=== PATIENT | female | born 1950 | race Caucasian/White ===

== ENCOUNTER 2023-04-10 16:08 | Inpatient (IN) | payer OTHER ==
[~2023-04-10] VITALS: Ht 152.4 cm; Wt 61.2 kg
[2023-04-10] MEDS ORDERED: LIPITOR40 M1 (16:20)
[2023-04-10] MEDS ORDERED: TENORMIN25 MG (16:20)
[2023-04-10] MEDS ORDERED: COZAAR100 MG (16:20)
--- NOTE | 2023-04-10 16:20 | NUR ---
SE RECIBE PACIENTE LERTARGICA EN AMBULANCIA EN COMPANIA DE FAMILIAR LA CUAL INDICA QUE PACIENTE PRESENTA HIPOTENSION Y NO PENNY ESTADO ORINANDO. PACIENTE CON ULCERA SACRAL ESTADIO 4 Y EN ULCERA EN SAVANA DERECHO.
[2023-04-10] MEDS ORDERED: NOREPINEPHRINE BITARTRATE 4 MG in DEXTROSE 5 % IN WATER 250 ML IV SCH (16:45)
[2023-04-10] MEDS ORDERED: PIPERACILLIN/TAZOBACTAM SODIUM 3.375 GM VIAL IV ONE (16:45)
[2023-04-10] MEDS ORDERED: 0.9 % SODIUM CHLORIDE 1,000 ML IV SCH ×2 (16:45→21:15)
[2023-04-10 17:17] LABS: HEMATOCRIT 41.6 % (36.0-45.00); HEMOGLOBIN 13.5 g/dL (12.0-15.00); MEAN CORPUSCULAR HEMOGLOBIN 28.2 pg (27.00-32.0); MEAN CORPUSCULAR HGB CONC 32.4 g/dl (32.0-36.0); PLATELET COUNT 268 K/uL (150-450); RED BLOOD COUNT 4.78 M/uL (4.00-6.00); RED CELL DISTRIBUTION WIDTH 16.5 % (11.5-14.5)
[2023-04-10 17:29] LABS: INR 1.07; PARTIAL THROMBOPLASTIN TIME 27.2 SECONDS (22.0-34.0); PROTHROMBIN TIME 11.2 SECONDS (9.0-11.5)
--- NOTE | 2023-04-10 17:33 | NUR ---
SE PASA PACIENTE A UNIDAD ICU # 2 SE CONECTA A MONITOR CARDIACO Y OXIMETRIA DE [place]. SE CANALIZA LA MISMA EN MANO DERECHO # 22 Y BRAZO RUTHIE # 20 PATENTE SE COLOCA IVFS Y DRIP DE LEVOPHED Y SE ADMINITRAN MEDICAMENTOS DAMIAN ORDEN MEDICA. SE MICHELLE MUESTRAS DE LABORATORIO Y SE ENVIAN. SE COLOCA KHAN CASSIUSO ORINA CHIKIS SE ANTHONY U/A Y U/C Y SE NOTIFICA AL DR. MALLOY. SE REALIZA EKG Y DXT. ABGS REALIZADO POR PERSONAL DE TERAPIA RESPIRATORIO Y SE COLOCA CANULA NASAL A 3 L/MIN
[2023-04-10 17:34] LABS: ALBUMIN 1.2 gm/dL (3.4-5.0); BILIRUBIN TOTAL 0.58 mg/dL (0.3-1.2); CALCIUM 7.5 mg/dL (8.5-10.1); CREATININE SERUM 1.57 mg/dL (0.55-1.02); GFR 32.29; GLOBULINA 3.8 G/DL (2.4-3.5); POTASSIUM 3.57 mEq/L (3.5-5.1)
[2023-04-10 17:39] LABS: URINE APPEARANCE Turbid; URINE BILIRRUBIN Large (NEGATIVE); URINE BLOOD Negative; URINE COLOR Orange; URINE GLUCOSE Negative (NEGATIVE); URINE LEUKOCYTE Moderate; URINE NITRATE Positive
[2023-04-10 17:39] LABS: ALBUMIN 1.2 gm/dL (3.4-5.0); BILIRUBIN TOTAL 0.57 mg/dL (0.3-1.2); BILIRUBIN,CONJUGATED 0.24 mg/dL (0.0-0.2); BILIRUBIN,UNCONJUGATED 0.33 mg/dL (0.0-0.6)
[2023-04-10 17:40] LABS: URINE BACTERIA 1185.6 uL (0.0-1933); URINE EPITHELIAL CELLS 107.9 uL (0.0-38.8); URINE RBC 669.8 uL (0.0-20.8)
[2023-04-10 18:03] LABS: URINE PROTEIN 100 (NEGATIVE)
[2023-04-10 18:04] LABS: URINE YEAST MANY /hpf
[2023-04-10 19:00] LABS: ABG PH 7.489 (7.35-7.45); ABG PO2 87.9 mmHg (80-100); ABG pCO2 35.3 mmHg (35-45); BASE EXCESS 3.2 mmol/l; BICARBONATE 26.2 mmol/l (23-25); SaO2 97.6 %
[2023-04-10 19:01] LABS: Tco2 27.3 mmol/l; allen test SATISFACTORY; o2 21 %; puncture site RADIAL RIGHT
[2023-04-10] MEDS ORDERED: MEROPENEM 500 MG/VIAL VIAL IV SCH (21:15)
[2023-04-10] MEDS ORDERED: VANCOMYCIN HCL 500 MG VIAL IV SCH (21:16)
[2023-04-10] MEDS ORDERED: ONDANSETRON HCL 4 MG in 0.9 % SODIUM CHLORIDE 50 ML IV PRN (21:30)
[2023-04-10] MEDS ORDERED: NOREPINEPHRINE BITARTRATE 8 MG in DEXTROSE 5 % IN WATER 250 ML IV SCH (21:30)
[2023-04-10] MEDS ORDERED: ACETAMINOPHEN 500 MG GEL..CAP PO PRN (21:30)
[2023-04-11 00:05] LABS: FERRITIN 1782.3 NG/ML (8-252)
[2023-04-11] MEDS ORDERED: ENOXAPARIN SODIUM 30 MG/0.3 ML SYRINGE SUBCUTANEO SCH (09:00)
[2023-04-11] MEDS ORDERED: ATORVASTATIN CALCIUM 40 MG TABLET PO SCH (09:00)
[2023-04-11] MEDS ORDERED: FAMOTIDINE/PF 20 MG in 0.9 % SODIUM CHLORIDE 8 ML IV PUSH SCH (09:00)
[2023-04-11] MEDS ORDERED: NYSTATIN 15 GM,SILVER SULFADIAZINE 50 GM,ZINC OXIDE 30 GM TOP SCH (09:12)
[2023-04-11] MEDS ORDERED: LINEZOLID IN DEXTROSE 5% 300 ML IV SCH (12:29)
[2023-04-11] MEDS ORDERED: FLUCONAZOLE IN NACL,ISO-OSM 200 MG/100 ML PIGGYBAG IV ONE (12:45)
[2023-04-11] MEDS ORDERED: MEROPENEM 500 MG/VIAL VIAL IV SCH (13:00)
[2023-04-11] MEDS ORDERED: NYSTATIN 30 GM,SILVER SULFADIAZINE 50 GM,ZINC OXIDE 30 GM TOP SCH (17:00)
[2023-04-12 06:44] LABS: HEMATOCRIT 42.8 % (36.0-45.00); MEAN CELL VOLUME 87.7 fL (80.00-100.00); MEAN CORPUSCULAR HEMOGLOBIN 28.8 pg (27.00-32.0); MEAN CORPUSCULAR HGB CONC 32.8 g/dl (32.0-36.0); PLATELET COUNT 209 K/uL (150-450); RED BLOOD COUNT 4.88 M/uL (4.00-6.00); RED CELL DISTRIBUTION WIDTH 16.3 % (11.5-14.5)
[2023-04-12 07:43] LABS: ALBUMIN 1.3 gm/dL (3.4-5.0); BILIRUBIN TOTAL 0.6 mg/dL (0.3-1.2); CALCIUM 7.4 mg/dL (8.5-10.1); CREATININE SERUM 0.7 mg/dL (0.55-1.02); GFR 82.02; GLOBULINA 3.8 G/DL (2.4-3.5); MAGNESIUM 2.1 mg/dL (1.8-2.4); PHOSPHOROUS 2.4 mg/dL (2.5-4.9); POTASSIUM 3.84 mEq/L (3.5-5.1); TOTAL PROTEIN 5.1 gm/dL (6.4-8.2)
[2023-04-12 07:44] LABS: C-REACTIVE PROTEIN 11.4 MG/DL (0.00-0.29); FERRITIN 1900.8 NG/ML (8-252)
[2023-04-12 08:24] LABS: ERYTHROCYTE SEDIMENTATION RATE 12 mm/hr
[2023-04-12] MEDS ORDERED: FLUCONAZOLE IN NACL,ISO-OSM 2 MG/ML ML IV SCH (12:00)
[2023-04-13 08:12] LABS: ALBUMIN 1.1 gm/dL (3.4-5.0); BILIRUBIN TOTAL 0.59 mg/dL (0.3-1.2); CALCIUM 7.1 mg/dL (8.5-10.1); CREATININE SERUM 0.6 mg/dL (0.55-1.02); GFR 97.99; GLOBULINA 3.4 G/DL (2.4-3.5); POTASSIUM 3.23 mEq/L (3.5-5.1); TOTAL PROTEIN 4.5 gm/dL (6.4-8.2)
[2023-04-13] MEDS ORDERED: FLUCONAZOLE IN NACL,ISO-OSM 50 ML IV SCH (12:00)
[2023-04-13] MEDS ORDERED: POTASSIUM CHLORIDE IN WATER 100 ML IV ONE (12:45)
[2023-04-13] MEDS ORDERED: FUROsemide 20 MG/2 ML VIAL IV STA (19:30)
[2023-04-13] MEDS ORDERED: ALBUMIN HUMAN-25 0.25GM/ML (50ML) VIAL IV SCH (19:48)
[2023-04-14 07:10] LABS: C-REACTIVE PROTEIN 6.75 MG/DL (0.00-0.29); FERRITIN 1594.3 NG/ML (8-252)
[2023-04-14] MEDS ORDERED: HYDROCORTISONE SODIUM SUCC/PF 100 MG VIAL IV SCH (08:04)
[2023-04-14 13:48] LABS: CHOL HDL RATIO 3.9 (0-5.0); CREATININE SERUM 0.35 mg/dL (0.55-1.02); GFR 182.53
[2023-04-14 13:55] LABS: POTASSIUM 2.92 mEq/L (3.5-5.1)
[2023-04-14] MEDS ORDERED: POTASSIUM CHLORIDE IN WATER 40 MEQ/100 ML PIGGYBAG IV ONE (14:11)
[2023-04-14] MEDS ORDERED: POTASSIUM CHLORIDE IN 0.9%NACL 40 MEQ/1,000 ML PIGGYBAG IV ONE (14:15)
[2023-04-14] MEDS ORDERED: AA 4.25%/CAL/LYTES/DEXT 5% 1,000 ML PERIFERAL SCH (17:00)
[2023-04-15 09:59] LABS: HEMATOCRIT 33.2 % (36.0-45.00); MEAN CELL VOLUME 86.9 fL (80.00-100.00); MEAN CORPUSCULAR HEMOGLOBIN 28.8 pg (27.00-32.0); MEAN CORPUSCULAR HGB CONC 33.2 g/dl (32.0-36.0); PLATELET COUNT 150 K/uL (150-450); RED BLOOD COUNT 3.82 M/uL (4.00-6.00); RED CELL DISTRIBUTION WIDTH 16.5 % (11.5-14.5)
[2023-04-15 11:07] LABS: ALBUMIN 1.4 gm/dL (3.4-5.0); BILIRUBIN TOTAL 0.65 mg/dL (0.3-1.2); CALCIUM 7.3 mg/dL (8.5-10.1); MAGNESIUM 1.6 mg/dL (1.8-2.4); POTASSIUM 3.55 mEq/L (3.5-5.1); TOTAL PROTEIN 4.4 gm/dL (6.4-8.2)
[2023-04-15 11:12] LABS: C-REACTIVE PROTEIN 6.39 MG/DL (0.00-0.29); GFR 236.14
[2023-04-15 11:13] LABS: CREATININE SERUM 0.28 mg/dL (0.55-1.02); PHOSPHOROUS 1.8 mg/dL (2.5-4.9)
[2023-04-15] MEDS ORDERED: MAGNESIUM SULFATE IN WATER 4 GM/100 ML PIGGYBACK IV ONE (12:30)
[2023-04-15] MEDS ORDERED: AMINO ACIDS/PROTEIN HYDROLYS 30 ML BLIST.PACK PO SCH (12:30)
[2023-04-15] MEDS ORDERED: POTASSIUM PHOS,M-BASIC-D-BASIC 15 MM in 0.9 % SODIUM CHLORIDE 250 ML IV ONE (14:00)
[2023-04-15] MEDS ORDERED: MEROPENEM 500 MG/VIAL VIAL IV SCH (14:00)
[2023-04-15] MEDS ORDERED: METRONIDAZOLE/SODIUM CHLORIDE 100 ML IV SCH (17:00)
[2023-04-15] MEDS ORDERED: MAGNESIUM SULFATE IN WATER 2 GM/50 ML PIGGYBAG IV ONE (18:30)
[2023-04-15] MEDS ORDERED: DEXTROSE 50 % IN WATER 0.5 G/ML DISP.SYRIN IV PRN (18:45)
[2023-04-15] MEDS ORDERED: INSULIN LISPRO 1,000 UNIT/10 ML UNITS SUBCUTANEO PRN (18:45)
[2023-04-16 07:58] LABS: C-REACTIVE PROTEIN 2.74 MG/DL (0.00-0.29); FERRITIN 1259.5 NG/ML (8-252)
[2023-04-16] MEDS ORDERED: SODIUM HYPOCHLORITE 1OZ TOP SCH (09:00)
[2023-04-16] MEDS ORDERED: NOREPINEPHRINE BITARTRATE 8 MG in DEXTROSE 5 % IN WATER 250 ML IV SCH (20:00)
[2023-04-17 06:35] LABS: HEMATOCRIT 30.2 % (36.0-45.00); MEAN CELL VOLUME 88.2 fL (80.00-100.00); MEAN CORPUSCULAR HEMOGLOBIN 29.3 pg (27.00-32.0); MEAN CORPUSCULAR HGB CONC 33.2 g/dl (32.0-36.0); RED BLOOD COUNT 3.42 M/uL (4.00-6.00); RED CELL DISTRIBUTION WIDTH 16.3 % (11.5-14.5)
[2023-04-17 06:50] LABS: ALBUMIN 1.1 gm/dL (3.4-5.0); BILIRUBIN TOTAL 0.39 mg/dL (0.3-1.2); CALCIUM 7.3 mg/dL (8.5-10.1); CREATININE SERUM 0.33 mg/dL (0.55-1.02); GFR 195.35; GLOBULINA 2.4 G/DL (2.4-3.5); MAGNESIUM 2.5 mg/dL (1.8-2.4); PHOSPHOROUS 2.8 mg/dL (2.5-4.9); POTASSIUM 4.55 mEq/L (3.5-5.1); TOTAL PROTEIN 3.5 gm/dL (6.4-8.2)
[2023-04-17 07:01] LABS: PLATELET COUNT 113 K/uL (150-450)
[2023-04-17] MEDS ORDERED: ENOXAPARIN SODIUM 40 MG/0.4 ML SYRINGE SUBCUTANEO SCH (09:00)
[2023-04-17] MEDS ORDERED: VANCOMYCIN HCL 5 MG/ML REDILUIDO IV SCH (17:00)
[2023-04-19 09:36] LABS: HEMATOCRIT 28.9 % (36.0-45.00); MEAN CELL VOLUME 85.8 fL (80.00-100.00); MEAN CORPUSCULAR HEMOGLOBIN 29.1 pg (27.00-32.0); MEAN CORPUSCULAR HGB CONC 33.9 g/dl (32.0-36.0); RED BLOOD COUNT 3.36 M/uL (4.00-6.00); RED CELL DISTRIBUTION WIDTH 16.5 % (11.5-14.5)
[2023-04-19 09:37] LABS: PLATELET COUNT 80 K/uL (150-450)
[2023-04-19 09:38] LABS: HEMOGLOBIN 9.8 g/dL (12.0-15.00)
[2023-04-19 10:17] LABS: ALBUMIN 1.1 gm/dL (3.4-5.0); BILIRUBIN TOTAL 0.46 mg/dL (0.3-1.2); GLOBULINA 2.6 G/DL (2.4-3.5); MAGNESIUM 1.7 mg/dL (1.8-2.4); POTASSIUM 3.6 mEq/L (3.5-5.1); TOTAL PROTEIN 3.7 gm/dL (6.4-8.2)
[2023-04-19 10:52] LABS: GFR 329.1
[2023-04-19 10:55] LABS: C-REACTIVE PROTEIN 6.38 MG/DL (0.00-0.29); PHOSPHOROUS 1.4 mg/dL (2.5-4.9)
[2023-04-19 10:56] LABS: CALCIUM 7.3 mg/dL (8.5-10.1); CREATININE SERUM 0.21 mg/dL (0.55-1.02)
[2023-04-19] MEDS ORDERED: MAGNESIUM SULFATE IN WATER 4 GM/100 ML PIGGYBACK IV ONE (16:45)
[2023-04-19] MEDS ORDERED: POTASSIUM PHOS,M-BASIC-D-BASIC 18 MM in 0.9 % SODIUM CHLORIDE 250 ML IV ONE (17:30)
[2023-04-21 07:12] LABS: INR 1.16; PARTIAL THROMBOPLASTIN TIME 27.6 SECONDS (22.0-34.0)
[2023-04-21 07:21] LABS: HEMATOCRIT 24.1 % (36.0-45.00); MEAN CELL VOLUME 88.1 fL (80.00-100.00); MEAN CORPUSCULAR HGB CONC 33.2 g/dl (32.0-36.0); RED BLOOD COUNT 2.73 M/uL (4.00-6.00); RED CELL DISTRIBUTION WIDTH 16.6 % (11.5-14.5)
[2023-04-21 07:22] LABS: MEAN CORPUSCULAR HEMOGLOBIN 29.3 pg (27.00-32.0); PLATELET COUNT 52 K/uL (150-450)
[2023-04-21 07:23] LABS: BILIRUBIN TOTAL 0.39 mg/dL (0.3-1.2); BILIRUBIN,CONJUGATED 0.11 mg/dL (0.0-0.2); BILIRUBIN,UNCONJUGATED 0.28 mg/dL (0.0-0.6); CALCIUM 6.8 mg/dL (8.5-10.1); CHOL HDL RATIO 2.9 (0-5.0); GFR 348.18; GLOBULINA 2.3 G/DL (2.4-3.5); MAGNESIUM 2.3 mg/dL (1.8-2.4); POTASSIUM 5.13 mEq/L (3.5-5.1); TOTAL PROTEIN 3.3 gm/dL (6.4-8.2)
[2023-04-21 07:33] LABS: CREATININE SERUM 0.2 mg/dL (0.55-1.02)
[2023-04-21 08:33] LABS: ABG PH 7.483 (7.35-7.45); ABG PO2 84.7 mmHg (80-100); ABG pCO2 31.6 mmHg (35-45); BASE EXCESS 0.6 mmol/l; BICARBONATE 23.1 mmol/l (23-25); SaO2 97.2 %; Tco2 24.1 mmol/l
[2023-04-21 08:34] LABS: allen test SATISFACTORY; o2 21 %; puncture site RADIAL LEFT
[2023-04-21] MEDS ORDERED: PANTOPRAZOLE SODIUM 40 MG/VIAL VIAL IV SCH (09:00)
[2023-04-21] MEDS ORDERED: FUROsemide 20 MG/2 ML VIAL IV SCH (09:15)
[2023-04-21] MEDS ORDERED: CALCIUM GLUCONATE 100 MG/ML VIAL IV ONE (09:15)
[2023-04-21] MEDS ORDERED: SOD FERRIC GLUC COMPLX/SUCROSE 62.5 MG/5 ML AMPUL IV SCH (09:41)
[2023-04-21 10:13] LABS: UREA CLEARANCE 26.7 ML/MIN
[2023-04-21 13:15] LABS: FERRITIN 1425.4 NG/ML (8-252)
[2023-04-22] MEDS ORDERED: VANCOMYCIN HCL 1,000 MG VIAL IV SCH (05:00)
[2023-04-22] MEDS ORDERED: MULTIVIT INFUSN,ADULT 4,VIT K 10 ML VIAL IV SCH (18:43)
[2023-04-22 19:53] LABS: HEMOGLOBIN 11.9 g/dL (12.0-15.00); MEAN CELL VOLUME 85.8 fL (80.00-100.00); MEAN CORPUSCULAR HEMOGLOBIN 29.1 pg (27.00-32.0); RED BLOOD COUNT 4.08 M/uL (4.00-6.00); RED CELL DISTRIBUTION WIDTH 15.2 % (11.5-14.5)
[2023-04-22 19:54] LABS: PLATELET COUNT 42 K/uL (150-450)
[2023-04-22 20:10] LABS: ALBUMIN 1.2 gm/dL (3.4-5.0); BILIRUBIN TOTAL 0.48 mg/dL (0.3-1.2); CALCIUM 7.2 mg/dL (8.5-10.1); GFR 369.41; GLOBULINA 2.5 G/DL (2.4-3.5); POTASSIUM 3.3 mEq/L (3.5-5.1); TOTAL PROTEIN 3.7 gm/dL (6.4-8.2)
[2023-04-22 20:12] LABS: CREATININE SERUM 0.19 mg/dL (0.55-1.02)
[2023-04-23 08:07] LABS: HEMATOCRIT 32.3 % (36.0-45.00); HEMOGLOBIN 11.1 g/dL (12.0-15.00); MEAN CELL VOLUME 87.3 fL (80.00-100.00); MEAN CORPUSCULAR HEMOGLOBIN 29.9 pg (27.00-32.0); MEAN CORPUSCULAR HGB CONC 34.2 g/dl (32.0-36.0); RED CELL DISTRIBUTION WIDTH 15.3 % (11.5-14.5)
[2023-04-23 08:11] LABS: PLATELET COUNT 35 K/uL (150-450)
[2023-04-23 08:16] LABS: PLATELET ESTIMATE DECREASED (NORMAL)
[2023-04-23] MEDS ORDERED: THIAMINE HCL 100 MG/ML 2 ML VIAL IV SCH (09:00)
[2023-04-23] MEDS ORDERED: FLUCONAZOLE IN NACL,ISO-OSM 200 MG/100 ML PIGGYBAG IV STA (09:16)
[2023-04-23] MEDS ORDERED: AMINO ACIDS/PROTEIN HYDROLYS 30 ML BLIST.PACK PO SCH (09:33)
[2023-04-23] MEDS ORDERED: CALCIUM CARBONATE/VITAMIN D3 1 TAB TABLET PO SCH (09:33)
[2023-04-23] MEDS ORDERED: POTASSIUM CHLORIDE IN WATER 100 ML IV ONE (09:45)
[2023-04-23 13:17] LABS: FIBRINOGEN 357 mg/dL (187.0-446.0); INR 1.04; PARTIAL THROMBOPLASTIN TIME 36.8 SECONDS (22.0-34.0); PROTHROMBIN TIME 10.9 SECONDS (9.0-11.5)
[2023-04-23 13:19] LABS: D DIMER 6.34 MG/L
[2023-04-23 13:27] LABS: COL EPI 181 SECONDS (82-175)
[2023-04-23 14:40] LABS: ob POSITIVE (NEGATIVE)
[2023-04-23] MEDS ORDERED: SODIUM CHLORIDE 0.45 % 1,000 ML IV SCH (18:15)
[2023-04-24] MEDS ORDERED: FLUCONAZOLE IN NACL,ISO-OSM 2 MG/ML ML IV SCH (09:00)
[2023-04-24 13:28] LABS: ALBUMIN 1.2 gm/dL (3.4-5.0); ALKALINE PHOSPHATASE 113 U/L (50-136); ALT/SGPT 16 U/L (12-78); ANION GAP 6 (10.0-20.0); AST/SGOT 31 U/L (15-37); BILIRUBIN TOTAL 0.44 mg/dL (0.3-1.2); BLOOD UREA NITROGEN 13 mg/dL (7-18); CALCIUM 7.3 mg/dL (8.5-10.1); CARBON DIOXIDE 32 mEq/L (21-32); CHLORIDE 111 mmol/L (98-107); GLOBULINA 2.5 G/DL (2.4-3.5); GLUCOSE FASTING 112 mg/dL (65-100); OSMOLALITY SERUM 291 MOSM/KG (275-295); POTASSIUM 3.41 mEq/L (3.5-5.1); SODIUM 146 mmol/L (136-145); TOTAL PROTEIN 3.7 gm/dL (6.4-8.2)
[2023-04-24 13:38] LABS: BUN CREA RATIO 86 (7.0-25.0); CREATININE SERUM < 0.15 mg/dL (0.55-1.02); GFR 485.29
[2023-04-24] MEDS ORDERED: MAGNESIUM SULFATE IN WATER 4 GM/100 ML PIGGYBACK IV ONE (16:15)
[2023-04-24] MEDS ORDERED: POTASSIUM CHLORIDE IN WATER 100 ML IV ONE (16:15)
[2023-04-24] MEDS ORDERED: POTASSIUM PHOS,M-BASIC-D-BASIC 18 MM in 0.9 % SODIUM CHLORIDE 250 ML IV ONE (18:00)
[2023-04-25 09:06] LABS: HEMATOCRIT 25.8 % (36.0-45.00); MEAN CELL VOLUME 87.1 fL (80.00-100.00); MEAN CORPUSCULAR HGB CONC 34.4 g/dl (32.0-36.0); RED BLOOD COUNT 2.96 M/uL (4.00-6.00); RED CELL DISTRIBUTION WIDTH 15.6 % (11.5-14.5)
[2023-04-25 09:09] LABS: ERYTHROCYTE SEDIMENTATION RATE 3 mm/hr
[2023-04-25 09:12] LABS: HEMOGLOBIN 8.9 g/dL (12.0-15.00)
[2023-04-25 09:13] LABS: PLATELET COUNT 31 K/uL (150-450)
[2023-04-25 09:39] LABS: MANUAL PLATELET COUNT 38
[2023-04-25 09:49] LABS: ALBUMIN 1.1 gm/dL (3.4-5.0); ALKALINE PHOSPHATASE 110 U/L (50-136); ALT/SGPT 14 U/L (12-78); ANION GAP 9 (10.0-20.0); AST/SGOT 28 U/L (15-37); BILIRUBIN TOTAL 0.44 mg/dL (0.3-1.2); BLOOD UREA NITROGEN 13 mg/dL (7-18); CALCIUM 7.1 mg/dL (8.5-10.1); CARBON DIOXIDE 29 mEq/L (21-32); CHLORIDE 111 mmol/L (98-107); GLOBULINA 2.4 G/DL (2.4-3.5); GLUCOSE FASTING 122 mg/dL (65-100); OSMOLALITY SERUM 290 MOSM/KG (275-295); SODIUM 145 mmol/L (136-145); TOTAL PROTEIN 3.5 gm/dL (6.4-8.2)
[2023-04-25 10:00] LABS: BUN CREA RATIO 86 (7.0-25.0); CREATININE SERUM < 0.15 mg/dL (0.55-1.02); GFR 485.29
[2023-04-25 10:01] LABS: PHOSPHOROUS 1.6 mg/dL (2.5-4.9)
[2023-04-25] MEDS ORDERED: PANTOPRAZOLE SODIUM 40 MG/VIAL VIAL IV SCH (14:45)
[2023-04-26] MEDS ORDERED: FUROsemide 20 MG/2 ML VIAL IV SCH (10:41)
[2023-04-26] MEDS ORDERED: LEVALBUTEROL HCL 0.63 MG/3 ML SOLUTION IH SCH (12:00)
[2023-04-26 14:58] LABS: INR 1.23; PARTIAL THROMBOPLASTIN TIME 38.2 SECONDS (22.0-34.0); PROTHROMBIN TIME 12.7 SECONDS (9.0-11.5)
[2023-04-26 15:04] LABS: ALBUMIN 1.2 gm/dL (3.4-5.0); BILIRUBIN TOTAL 0.5 mg/dL (0.3-1.2); CALCIUM 7.6 mg/dL (8.5-10.1); GFR 311.91; GLOBULINA 2.8 G/DL (2.4-3.5); POTASSIUM 3.78 mEq/L (3.5-5.1)
[2023-04-26 15:22] LABS: CREATININE SERUM 0.22 mg/dL (0.55-1.02)
[2023-04-26] MEDS ORDERED: NOREPINEPHRINE BITARTRATE 8 MG in DEXTROSE 5 % IN WATER 250 ML IV SCH (20:45)
[2023-04-26 21:26] LABS: ABG PH 7.418 (7.35-7.45); ABG pCO2 39.4 mmHg (35-45)
[2023-04-26 21:27] LABS: BASE EXCESS 0.4 mmol/l; BICARBONATE 24.8 mmol/l (23-25); SaO2 98.6 %; Tco2 26.1 mmol/l; allen test SATISFACTORY; o2 100 %; puncture site RADIAL RIGHT
[2023-04-26 21:37] LABS: HEMATOCRIT 40.1 % (36.0-45.00); HEMOGLOBIN 13.4 g/dL (12.0-15.00); MEAN CORPUSCULAR HGB CONC 33.3 g/dl (32.0-36.0); PLATELET COUNT 143 K/uL (150-450); RED BLOOD COUNT 4.61 M/uL (4.00-6.00); RED CELL DISTRIBUTION WIDTH 15.4 % (11.5-14.5)
== END 2023-04-27 00:36 | disposition expired | DRG 539 ==
LOC: ER 16:08 → ICU-2 21:25 → MEDJ 21:25 → ICU 04-12 16:34 → MEDJ 04-23 14:57
PROVIDERS: General Practice; Internal Medicine; Internal Medicine Hematology & Oncology; Internal Medicine Infectious Disease; ADMIT Internal Medicine; ATTEND Internal Medicine
PROC: B246ZZZ Ultrasonography of Right and Left Heart (ICD-10-PCS; principal; 2023-04-10)
PROC: 0JBR3ZZ Excision of Left Foot Subcutaneous Tissue and Fascia, Percutaneous Approach (ICD-10-PCS; 2023-04-11)
PROC: 0JB73ZZ Excision of Back Subcutaneous Tissue and Fascia, Percutaneous Approach (ICD-10-PCS; 2023-04-11)
PROC: 02HV33Z Insertion of Infusion Device into Superior Vena Cava, Percutaneous Approach (ICD-10-PCS; 2023-04-13)
PROC: BW2 Imaging, Anatomical Regions, Computerized Tomography (CT Scan) (ICD-10-PCS; 2023-04-14)
PROC: B54DZZZ Ultrasonography of Bilateral Lower Extremity Veins (ICD-10-PCS; 2023-04-14)
PROC: 0JBR3ZZ Excision of Left Foot Subcutaneous Tissue and Fascia, Percutaneous Approach (ICD-10-PCS; 2023-04-17)
PROC: 0JB73ZZ Excision of Back Subcutaneous Tissue and Fascia, Percutaneous Approach (ICD-10-PCS; 2023-04-17)
PROC: 30233N1 Transfusion of Nonautologous Red Blood Cells into Peripheral Vein, Percutaneous Approach (ICD-10-PCS; 2023-04-21)
PROC: BW4GZZZ Ultrasonography of Pelvic Region (ICD-10-PCS; 2023-04-22)
PROC: 30233R1 Transfusion of Nonautologous Platelets into Peripheral Vein, Percutaneous Approach (ICD-10-PCS; 2023-04-25)
PROC: 3E0F7GC Introduction of Other Therapeutic Substance into Respiratory Tract, Via Natural or Artificial Opening (ICD-10-PCS; 2023-04-26)
PROC: 4A12X4Z Monitoring of Cardiac Electrical Activity, External Approach (ICD-10-PCS; 2023-04-26)
PROC: 0BH18EZ Insertion of Endotracheal Airway into Trachea, Via Natural or Artificial Opening Endoscopic (ICD-10-PCS; 2023-04-26)
DX: M86.8X8 Other osteomyelitis, other site (principal); A41.9 Sepsis, unspecified organism; I21.A1 Myocardial infarction type 2; U07.1 COVID-19; L97.423 Non-pressure chronic ulcer of left heel and midfoot with necrosis of muscle; N17.8 Other acute kidney failure; N39.0 Urinary tract infection, site not specified; L89.629 Pressure ulcer of left heel, unspecified stage; E11.621 Type 2 diabetes mellitus with foot ulcer; Z74.01 Bed confinement status; G30.9 Alzheimer's disease, unspecified; F02.80 Dementia in other diseases classified elsewhere, unspecified severity, without behavioral disturbance, psychotic disturbance, mood disturbance, and anxiety; E78.49 Other hyperlipidemia; E86.0 Dehydration; K21.9 Gastro-esophageal reflux disease without esophagitis; I12.9 Hypertensive chronic kidney disease with stage 1 through stage 4 chronic kidney disease, or unspecified chronic kidney disease; E11.22 Type 2 diabetes mellitus with diabetic chronic kidney disease; N18.9 Chronic kidney disease, unspecified; D69.6 Thrombocytopenia, unspecified; Z79.4 Long term (current) use of insulin; B96.89 Other specified bacterial agents as the cause of diseases classified elsewhere; Z79.85 Long-term (current) use of injectable non-insulin antidiabetic drugs; L08.89 Other specified local infections of the skin and subcutaneous tissue; E87.6 Hypokalemia; D64.9 Anemia, unspecified
CPT/HCPCS: 72198